=== PATIENT | female | born 1980 | race Caucasian/White ===

== ENCOUNTER → 2018-04-22 | Outpatient (CLI) | payer OTHER ==
[~2018-04-22] MED LIST: HYDR-3240 PO; IBUP-1222 PO; PREN1TAB56 PO; b12 PO
== END | disposition home or self-care (01) ==
LOC: CFH 13:48
PROVIDERS: ATTEND Internal Medicine Cardiovascular Disease
DX: R00.2 Palpitations (principal)
CPT/HCPCS: 93306